=== PATIENT | female | born 1985 | race Two or more races ===

== ENCOUNTER 2022-03-11 10:46 | Observation (INO) | payer SELFPAY ==
[~2022-03-11] VITALS: Ht 160 cm; Wt 70.8 kg
[2022-03-11] MEDS ORDERED: LACTATED RINGER'S 1,000 ML IV ONE (11:45)
[2022-03-11] MEDS ORDERED: ceFAZolin 2 GM in D5W 5% 100 ML IV ONE (11:45)
[2022-03-11] MEDS ORDERED: METF-370 PO (11:53)
[2022-03-11] MEDS ORDERED: PREN-96 PO (11:53)
[2022-03-11] MEDS ORDERED: AZIT250T8 PO (11:53)
[2022-03-11 14:21] LABS: Alcohol, Urine < 3.0 mg/dL (0-10); Amphetamine Screen, Urine NEGATIVE (NEGATIVE); Barbiturate Scree,Urine NEGATIVE (NEGATIVE); Benzodiazephine Screen, Urine NEGATIVE (NEGATIVE); Cannabinoid Screen, Urine NEGATIVE (NEGATIVE); Cocaine Screen, Urine NEGATIVE (NEGATIVE); Opiate Scree,Urine NEGATIVE (NEGATIVE); Phencyclidine Screen, Urine NEGATIVE (NEGATIVE)
[2022-03-11 14:46] LABS: Urine Bacteria FEW /hpf (None Seen); Urine Blood Negative /uL (Negative); Urine Specific Gravity 1.005 (1.001-1.035); Urine WBC 2 /hpf (0 - 5)
== END 2022-03-11 15:07 | disposition home or self-care (01) ==
LOC: LDRP 10:46
PROVIDERS: ADMIT Obstetrics & Gynecology; ATTEND Obstetrics & Gynecology
DX: O26.893 Other specified pregnancy related conditions, third trimester (principal); Z20.822 Contact with and (suspected) exposure to COVID-19; R10.30 Lower abdominal pain, unspecified; R05.9 Cough, unspecified; O24.415 Gestational diabetes mellitus in pregnancy, controlled by oral hypoglycemic drugs; Z3A.35 35 weeks gestation of pregnancy; Z79.84 Long term (current) use of oral hypoglycemic drugs; Z87.891 Personal history of nicotine dependence
CPT/HCPCS: 36415; 59025; 80307; 81001; 81002; 82948; 82962; 87426; 96361; 96365; G0378; J0690; J7060; 96360